=== PATIENT | female | born 1990 | race Caucasian/White ===

== ENCOUNTER 2023-05-09 21:47 | Emergency (ER) | payer BC, OTHER ==
[~2023-05-09] VITALS: Ht 167.6 cm; Wt 510.3 kg
[2023-05-09 23:13] VITALS: BP 118/73; TEMP 98.1; O2SAT 97
== END 2023-05-09 23:14 | disposition home or self-care (01) ==
LOC: ER 21:47
DX: Z71.1 Person with feared health complaint in whom no diagnosis is made (principal); F41.9 Anxiety disorder, unspecified